=== PATIENT | male | born 1995 ===

== ENCOUNTER 2023-04-11 18:01 | Outpatient (CLI) | payer MEDICAID, SELFPAY ==
[2023-04-11 14:37] LABS: Abs Immature Grans 0.02 10^3/uL (0.0-0.06); Absolute Basophil Count 0.04 10^3/uL (0.0-0.2); Absolute Eosinophil Count 0.08 10^3/uL (0.0-0.7); Absolute Lymphocyte Count 1.81 10^3/uL (1.2-3.4); Absolute Monocyte Count 0.49 10^3/uL (0.1-0.8); Absolute Neutrophil Count 4.37 10^3/uL (1.2-6.7); Basophils % 0.6; Eosinophils % 1.2; HCT 46.8 % (40.0-50.0); HGB 15.4 g/dL (13.5-17.5); Immature Grans % 0.3; Lymphocytes % 26.6; MCH 27.5 pg (27.0-33.0); MCHC 32.9 % (32.0-36.0); MCV 83 fL (80-95); MPV 9.4 fL (8.0-11.0); Monocytes % 7.2; Neutrophils % 64.1; Platelet Count 206 10^3/uL (130-400); RBC 5.61 10^6/uL (4.36-5.78); RDW 13.2 % (11.8-14.1); RDW-SD 40.2 fL; WBC 6.81 10^3/uL (4.4-10.8)
[2023-04-11 15:48] LABS: Hemoglobin A1C 5.6 % (<5.7)
[2023-04-11 15:51] LABS: ALT 41 U/L (16-63); AST 19 U/L (15-37); Albumin 3.8 g/dL (3.4-5.0); Alkaline Phosphatase 92 U/L (46-116); Anion Gap 9.1 mmol/L (3-11); BUN 9 mg/dL (7-18); Bilirubin, Total 0.9 mg/dL (0.2-1.0); CO2 27.9 mmol/L (21.0-32.0); Calcium 9.2 mg/dL (8.5-10.1); Calculated LDL 30 mg/dL (<100); Chloride 105 mmol/L (98-107); Cholesterol 118 mg/dL (<200); Estimated GFR 105.14 (mL/min/1.73m2); Glucose 120 mg/dL (74-106); HDL Cholesterol 35 mg/dL (40-60); Potassium 3.7 mmol/L (3.5-5.1); Sodium 142 mmol/L (136-145); TSH (W/Ref FT4) 1.58 uIU/mL (0.36-3.74); Total Protein 8.3 g/dL (6.4-8.2); Triglyceride 268 mg/dL (<150); Vitamin B12 287 pg/mL (193-986)
[2023-04-11 16:25] LABS: Vitamin D 25 Total 16.7 ng/mL (30-100)
[2023-04-12 11:55] LABS: HIV-1/2 Ag & Ab Screen Negative (Negative)
[2023-04-12 12:10] LABS: Hepatitis A Antibody IgM Negative (Negative); Hepatitis B Core Antibody Negative (Negative); Hepatitis B surface Ag Negative (Negative); Hepatitis C Ab w Rflx HCV PCR Negative (Negative)
== END 2023-04-11 18:02 | disposition home or self-care (01) ==
LOC: LBO 04-14 18:02
PROVIDERS: Visit Provider Nurse Practitioner Family
DX: I10 Essential (primary) hypertension (principal); E78.5 Hyperlipidemia, unspecified
CPT/HCPCS: 36415; 80053; 80061; 82306; 86704; 86709; 86803; 87340; 87389; 82607; 83036; 84443; 85025